=== PATIENT | female | born 1960 | race Caucasian/White ===

== ENCOUNTER 2021-02-26 11:06 | Outpatient (CLI) | payer OTHER ==
[2021-02-26] MEDS ORDERED: VITA1TAB85 PO (11:28)
== END 2021-02-26 23:59 | disposition home or self-care (01) ==
LOC: STAR 11:06
PROVIDERS: ATTEND Surgery
DX: Z01.818 Encounter for other preprocedural examination (principal); R00.1 Bradycardia, unspecified; Z20.822 Contact with and (suspected) exposure to COVID-19
CPT/HCPCS: 93005; U0003; U0005

== ENCOUNTER 2021-03-04 06:00 | Day surgery (SDC) | payer OTHER ==
[~2021-03-04] VITALS: Ht 162.6 cm; Wt 99.3 kg
[~2021-03-04 06:00] MED LIST: VITA1TAB85 PO
[2021-03-04] MEDS ORDERED: EPINEPHRINE 1 MG/ML, 1ML ONE (06:57)
[2021-03-04] MEDS ORDERED: BUPIVACAINE/PF 0.5% ONE (06:57)
[2021-03-04] MEDS ORDERED: LACTATED RINGERS 1,000 ML IV SCH (07:00)
[2021-03-04] MEDS ORDERED: LIDOCAINE-MPF 1%, 2ML INFIL ONE (07:00)
[2021-03-04] MEDS ORDERED: CHLORHEXIDINE 15 ML UDC PO ONE (07:00)
[2021-03-04] MEDS ORDERED: MIDAZOLAM 1 MG/ML, 2ML ONE ×2 (07:07→08:29)
[2021-03-04] MEDS ORDERED: FENTANYL PF 250 MCG/5ML ONE (07:07)
[2021-03-04] MEDS ORDERED: PROPOFOL 10 MG/ML, 20ML ONE (07:22)
[2021-03-04] MEDS ORDERED: SUGAMMADEX 200 MG/2 ML IVPush ONE (07:22)
[2021-03-04] MEDS ORDERED: DEXAMETHASONE 4 MG/ML, 1ML ONE (07:22)
[2021-03-04] MEDS ORDERED: CEFOTETAN 2 GM ONE (07:22)
[2021-03-04] MEDS ORDERED: ROCURONIUM 10 MG/ML,10ML ONE (07:22)
[2021-03-04] MEDS ORDERED: ONDANSETRON 2MG/ML, 2ML ONE ×2 (07:22→08:29)
[2021-03-04] MEDS ORDERED: KETOROLAC 30 MG/1 ML ONE (07:22)
[2021-03-04] MEDS ORDERED: SUCCINYLCHOLINE 20 MG/ML, 10ML ONE (07:22)
[2021-03-04] MEDS ORDERED: HYDROmorphone 1 MG/ML, 1ML INJ IVPush PRN (08:00)
[2021-03-04] MEDS ORDERED: MIDAZOLAM 1 MG/ML, 2ML IV PRN (08:00)
[2021-03-04] MEDS ORDERED: MEPERIDINE/PF 25MG/0.5ML IVPush PRN (08:00)
[2021-03-04] MEDS ORDERED: OXYcodone 5 MG/5 ML ORAL.SOL UDC PO PRN (08:00)
[2021-03-04] MEDS ORDERED: ONDANSETRON 2MG/ML, 2ML IVPush PRN (08:00)
[2021-03-04] MEDS ORDERED: PROMETHAZINE 12.5 MG SUPP PR PRN (08:00)
[2021-03-04] MEDS ORDERED: ACETAMINOPHEN 325 MG TABLET PO PRN (08:00)
[2021-03-04] MEDS ORDERED: FENTANYL PF 100 MCG/2ML ONE (08:29)
[2021-03-04] MEDS: FENTANYL PF 100 MCG/2ML IV PRN ×2 (08:35→09:04)
[2021-03-04] MEDS ORDERED: HYDR-2214 PO (09:10)
== END 2021-03-04 11:20 | disposition home or self-care (01) ==
LOC: OUT 06:00
PROVIDERS: ATTEND Surgery
DX: K80.10 Calculus of gallbladder with chronic cholecystitis without obstruction (principal); K66.0 Peritoneal adhesions (postprocedural) (postinfection); Z79.899 Other long term (current) drug therapy; Z98.890 Other specified postprocedural states; Z80.1 Family history of malignant neoplasm of trachea, bronchus and lung; Z80.8 Family history of malignant neoplasm of other organs or systems; Z83.3 Family history of diabetes mellitus; Z82.49 Family history of ischemic heart disease and other diseases of the circulatory system
CPT/HCPCS: 47562; 88304; J0171; J0330; J1100; J1885; J2250; J2405; J2704; J3010; J7120